=== PATIENT | male | born 1985 | race Caucasian/White ===

== ENCOUNTER 2023-12-13 17:11 | Emergency (ER) | payer SELFPAY ==
[2023-12-13 17:26] VITALS: BMI 29.2
[2023-12-13] MEDS ORDERED: DALBAVANCIN HCL 500 MG VIAL (RESTRICTED TO ID ONLY) IVPB ONE (18:39)
[2023-12-13 18:45] LABS: BASO % 0.4 % (0-2.0); EOS % 0.5 % (0-4.5); HEMATOCRIT 35.6 % (35.4-49); HEMOGLOBIN 12.3 GM/dL (11.7-16.9); LYMPH % 7.1 % (8-40); MCHC 34.5 g/dl (32.0-35.9); MEAN CELL VOLUME 92.9 fl (80-96); MEAN PLT VOLUME 8.3 fl (7.5-11.1); MONO % 13.1 % (3.8-10.2); NEUT % 78.9 % (42.8-82.8); PLATELET COUNT 212 10^3/uL (134-434); RBC 3.84 M/mm3 (4.00-5.60); RDW 14.7 % (11.9-15.9); WHITE BLOOD COUNT 10.5 K/mm3 (4.0-10.0)
[2023-12-13] MEDS: DALBAVANCIN HCL 1,500 MG in DEXTROSE 5%-WATER - 500 ML IVPB ONE (18:55)
[2023-12-13 18:59] LABS: POTASSIUM 3.5 mmol/L (3.5-5.1)
[2023-12-13 19:01] LABS: BLOOD UREA NITROGEN 6.5 mg/dL (7-18); CALCIUM 8.7 mg/dL (8.5-10.1)
[2023-12-13 19:02] LABS: ALBUMIN 3.3 g/dl (3.4-5.0)
[2023-12-13 19:04] LABS: CREATININE 0.7 mg/dL (0.55-1.3)
[2023-12-13 19:06] LABS: BILIRUBIN,TOTAL 0.4 mg/dL (0.2-1)
[2023-12-13 22:41] VITALS: BP 122/71; PULSE 86; RESP 18; TEMP 99
== END 2023-12-13 22:41 | disposition home or self-care (01) ==
LOC: JER 17:11
DX: L03.115 Cellulitis of right lower limb (principal); M79.661 Pain in right lower leg; M79.89 Other specified soft tissue disorders
CPT/HCPCS: 36415; 80053; 85025; 93971-TC; 99284-25; J0875